=== PATIENT | male | born 1935 | race Caucasian/White ===

== ENCOUNTER 2016-06-30 17:24 | Emergency (ER) | payer MEDICARE ==
[2016-06-30] MEDS ORDERED: XYLOCAINE 2% Uro-Jet ONE (19:18)
[2016-06-30] MEDS ORDERED: XYLOCAINE 2% Uro-Jet TOP ONE (19:44)
[2016-06-30] MEDS ORDERED: ROCEPHIN 1 Gm-D5w 50 ml Bag** 50 ML IV ONE ×2 (19:44→20:13)
--- NOTE | 2016-06-30 19:49 | ERPHSYRPT ---
- History of Present Illness Time Seen by Provider: 06/30/16 19:12 Source: patient, family Patient Subjective Stated Complaint: states that he drank soda last night and has had burning with urination and some incontinence since that time Triage Nursing Assessment: ambulatory to treatment area - steady gait - moves all extremities with equal strength. alert/oriented - pleasant affect. skin pwd - no rash/injury. resps easy - non-labored Physician History: CC: burning with urination hx: 81 y/o man without hx of prostate problems or cancer. He has recent weight loss. He noted burning with urination last night and frequency with minimal urine today. No fever or chills. Penis feels pain. No vomiting. No abd pain. No hx of this in the past. Pt of Dr Buckner. No prior urology. Timing/Duration: yesterday Severity of Pain-Max: moderate Severity of Pain-Current: moderate Allergies/Adverse Reactions: No Known Drug Allergies Allergy (Unverified 06/30/16 19:17) Hx Tetanus, Diphtheria Vaccination/Date Given: No Hx Influenza Vaccination/Date Given: Yes Hx Pneumococcal Vaccination/Date Given: No Immunizations Up to Date: Yes - Past Medical History Pertinent Past Medical History: No Cardiac History: High Cholesterol, Hypertension Endocrine Medical History: Diabetes Type II, Hypothyroidism - Past Surgical History Past Surgical History: No - Social History Smoking Status: Never smoker Exposure to second hand smoke: No Drug Use: none Patient Lives Alone: No - Review of Systems Constitutional: Malaise, No Fever, No Chills Eyes: No Symptoms Respiratory: No Cough Cardiac: No Chest Pain Abdominal/Gastrointestinal: No Abdominal Pain, No Nausea, No Vomiting Genitourinary Symptoms: Dysuria, Frequency, Hesitancy, Incontinence, Urgency, Urinary Retention, No Flank Pain, No Testicle Pain Musculoskeletal: No Back Pain Skin: No Rash Neurological: No Headache All Other Systems: Reviewed and Negative - Nursing Vital Signs Nursing Vital Signs: Initial Vital Signs Temperature 98.9 F Temperature Source Oral Pulse Rate 68 Respiratory Rate 14 Blood Pressure [Right Arm] 138/77 Pain Intensity 0 - Physical Exam General Appearance: alert Eye Exam: PERRL/EOMI Ears, Nose, Throat Exam: moist mucous membranes Neck Exam: normal inspection, non-tender, supple Respiratory Exam: normal breath sounds, lungs clear Cardiovascular Exam: regular rate/rhythm Gastrointestinal/Abdomen Exam: soft, No tenderness, No distention Male Genital Exam: uncircumcised (phallus, some incontinent urine, normal testes. ) Back Exam: normal inspection Extremity Exam: normal inspection, normal range of motion Neurologic Exam: alert, oriented x 3, cooperative Skin Exam: warm, dry, No rash SpO2 Interpretation: normal SpO2: 98 Oxygen Delivery: Room Air Procedures - Additional Procedures Progress: Payne catheter placement: Penis cleanse with betadine. Urojet lidocaine injected. Attempt at payne unsuccessful due to urethral stricture. Attempted 16 Fr, 12 Fr , 8 Fr. Urethral sound used distal urethra. 10Fr suction catheter placed thru thick adhesions with return of foul thick urine. A 10 Fr payne was then placed with some difficulty distally thru the adhesion. Return of urine. Ultraound confirms intravesicular payne balloon and the catheter is draining urine. - Course Nursing assessment & vital signs reviewed: Yes Ordered Tests: Active Orders 24 hr Category Date Time Status Catheter-[place] Payne STAT Care 06/30/16 19:43 Active IV Insertion STAT Care 06/30/16 19:43 Active CBC W DIFF Stat Lab 06/30/16 20:00 Completed CMP Stat Lab 06/30/16 20:00 Completed CULTURE,URINE Stat Lab 06/30/16 20:00 Received Lactic Acid Urgent Lab 06/30/16 20:15 Completed UA W/ MICROSCOPIC Stat Lab 06/30/16 20:00 Completed Medication Summary Discontinued Medications Generic Name Dose Route Start Last Admin Trade Name Freq PRN Reason Stop Dose Admin Ceftriaxone Sodium/Dextrose 50 mls @ 100 mls/hr 06/30/16 19:44 06/30/16 20:15 Rocephin 1 Gm-D5w 50 Ml Bag IV 06/30/16 20:13 100 mls/hr STAT ONE Administration Ceftriaxone Sodium/Dextrose Confirm 06/30/16 20:13 Rocephin 1 Gm-D5w 50 Ml Bag Administered 06/30/16 20:14 Dose 50 mls @ ud IV .STK-MED ONE Lidocaine HCl Confirm 06/30/16 19:18 Xylocaine 2% Uro-Jet Administered 06/30/16 19:19 Dose 200 mg .ROUTE .STK-MED ONE Lidocaine HCl 200 mg 06/30/16 19:44 06/30/16 20:16 Xylocaine 2% Uro-Jet TOP 06/30/16 19:45 200 mg STAT ONE Administration Lab/Rad Data: Laboratory Result Diagrams 06/30/16 20:00 06/30/16 20:00 Laboratory Results 06/30/16 06/30/16 06/30/16 Range/Units 20:15 20:00 20:00 WBC (4.0-10.5) K/mm3 RBC (4.1-5.6) M/mm3 Hgb (12.5-18.0) gm/dl Hct (42-50) % MCV (78-100) fl MCH (26-32) pg MCHC (32-36) g/dl RDW (11.5-14.0) % Plt Count (150-450) K/mm3 MPV (6-9.5) fl Gran % (36.0-66.0) % Lymphocytes % (24.0-44.0) % Monocytes % (0.0-12.0) % Eosinophils % (0.00-5.0) % Basophils % (0.0-0.4) % Basophils # (0-0.4) Sodium 131 L (136-145) mEq/L Potassium 4.3 (3.5-5.1) mEq/L Chloride 94 L (98-107) mEq/L Carbon Dioxide 25.5 (21-32) mEq/L Anion Gap 15.8 H (5-15) MEQ/L BUN 12 (9-20) mg/dL Creatinine 0.82 (0.55-1.30) mg/dl Estimated GFR > 60 ML/MIN Glucose 148 H (70-110) MG/DL Lactic Acid 1.4 (0.4-2.0) Calcium 9.5 (8.5-10.1) mg/dL Total Bilirubin 0.9 (0.2-1.0) mg/dL AST 23 (15-37) U/L ALT 22 (12-78) U/L Alkaline Phosphatase 152 H (46-116) U/L Serum Total Protein 8.1 (6.4-8.2) gm/dL Albumin 3.7 (3.4-5.0) g/dL Ur Collection Type CLEAN CATCH Urine Color YELLOW (YELLOW) Urine Appearance CLOUDY (CLEAR) Urine pH 6.5 (5-6) Ur Specific [place] 1.025 (1.005-1.025) Urine Protein >=300 (Negative) Urine Glucose (UA) NEGATIVE (NEGATIVE) mg/dL Urine Ketones NEGATIVE (NEGATIVE) Urine Nitrite NEGATIVE (NEGATIVE) Urine Bilirubin NEGATIVE (NEGATIVE) Urine Urobilinogen 0.2 (0-1) mg/dL Urine WBC (Auto) MODERATE (NEGATIVE) Urine RBC (Auto) MODERATE (0-5) Anibal/ul Urine Microscopic RBC 25-50 (0-2) /HPF Urine Microscopic WBC >100 (0-5) /HPF Urine Bacteria MANY (NEGATIVE) /HPF Urine Mucus MODERATE (NEGATIVE) /HPF Specimen Received 06/30/16:199906/30/16 Range/Units 20:00 WBC 11.5 H (4.0-10.5) K/mm3 RBC 3.68 L (4.1-5.6) M/mm3 Hgb 12.0 L (12.5-18.0) gm/dl Hct 34.2 L (42-50) % MCV 92.9 (78-100) fl MCH 32.6 H (26-32) pg MCHC 35.1 (32-36) g/dl RDW 13.0 (11.5-14.0) % Plt Count 241 (150-450) K/mm3 MPV 10.4 H (6-9.5) fl Gran % 76.6 H (36.0-66.0) % Lymphocytes % 9.8 L (24.0-44.0) % Monocytes % 13.1 H (0.0-12.0) % Eosinophils % 0.2 (0.00-5.0) % Basophils % 0.3 (0.0-0.4) % Basophils # 0.03 (0-0.4) Sodium (136-145) mEq/L Potassium (3.5-5.1) mEq/L Chloride (98-107) mEq/L Carbon Dioxide (21-32) mEq/L Anion Gap (5-15) MEQ/L BUN (9-20) mg/dL Creatinine (0.55-1.30) mg/dl Estimated GFR ML/MIN Glucose (70-110) MG/DL Lactic Acid (0.4-2.0) Calcium (8.5-10.1) mg/dL Total Bilirubin (0.2-1.0) mg/dL AST (15-37) U/L ALT (12-78) U/L Alkaline Phosphatase (46-116) U/L Serum Total Protein (6.4-8.2) gm/dL Albumin (3.4-5.0) g/dL Ur Collection Type Urine Color (YELLOW) Urine Appearance (CLEAR) Urine pH (5-6) Ur Specific [place] (1.005-1.025) Urine Protein (Negative) Urine Glucose (UA) (NEGATIVE) mg/dL Urine Ketones (NEGATIVE) Urine Nitrite (NEGATIVE) Urine Bilirubin (NEGATIVE) Urine Urobilinogen (0-1) mg/dL Urine WBC (Auto) (NEGATIVE) Urine RBC (Auto) (0-5) Anibal/ul Urine Microscopic RBC (0-2) /HPF Urine Microscopic WBC (0-5) /HPF Urine Bacteria (NEGATIVE) /HPF Urine Mucus (NEGATIVE) /HPF Specimen Received - Progress Progress Note: 06/30/16 21:00 Labs reassuring. He has appt with Dr Buckner Sunday. Will need urology referral before payne removed as he has distal urethral stricture. Will release with instr. Counseled pt/family regarding: lab results, diagnosis, need for follow-up - Departure Time of Disposition: 21:01 Departure Disposition: Home Clinical Impression: Acute urinary retention, Urethral stricture, UTI (urinary tract infection) Condition: Stable Critical Care Time: No Referrals: SAMUEL BUCKNER MD [Primary Care Provider] - Instructions: Urinary Retention in Men, Care for Your Payne Catheter -- Male Additional Instructions: You have distal urethral stricture and will need to see urology for procedure before catheter removed. Rx omnicef to start tomorrow. Return for fever, pain, vomiting. See Dr Buckner as scheduled Sunday. Prescriptions: Cefdinir [Omnicef 300 mg] 300 mg PO BID #28 capsule
[2016-06-30 20:12] LABS: BASOPHIL % 0.3 % (0.0-0.4); Eosinophil % 0.2 % (0.00-5.0); Granulocytes % 76.6 % (36.0-66.0); Lymphocytes % 9.8 % (24.0-44.0); Mean Cell Volume 92.9 fl (78-100); Mean Corpuscular Hemoglobin 32.6 pg (26-32); Mean Platelet Volume 10.4 fl (6-9.5); Monocytes % 13.1 % (0.0-12.0); Platelet Count 241 K/mm3 (150-450); Red Blood Count 3.68 M/mm3 (4.1-5.6); White Blood Count 11.5 K/mm3 (4.0-10.5)
[2016-06-30 20:16] LABS: Bacteria MANY /HPF (NEGATIVE); COMPLETE URINE MICROSCOPIC? YES; Collection Type CLEAN CATCH; Mucus MODERATE /HPF (NEGATIVE); Ph 6.5 (5-6); WBC >100 /HPF (0-5)
[2016-06-30 20:31] LABS: ALBUMIN 3.7 g/dL (3.4-5.0); ALKALINE PHOSPHATASE 152 U/L (46-116); ANION GAP 15.8 MEQ/L (5-15); BILIRUBIN,TOTAL 0.9 mg/dL (0.2-1.0); BLOOD UREA NITROGEN 12 mg/dL (9-20); CHLORIDE 94 mEq/L (98-107); Carbon Dioxide 25.5 mEq/L (21-32); Glucose 148 MG/DL (70-110); Potassium 4.3 mEq/L (3.5-5.1); SGOT/AST 23 U/L (15-37); SGPT/ALT 22 U/L (12-78); SODIUM 131 mEq/L (136-145); Total Protein 8.1 gm/dL (6.4-8.2)
[2016-06-30 20:43] VITALS: BP 138/77; PULSE 68
[2016-06-30 21:03] VITALS: O2SAT 98
== END 2016-06-30 21:36 | disposition home or self-care (01) ==
LOC: ED 17:24
DX: R33.9 Retention of urine, unspecified (principal); N35.9 Urethral stricture, unspecified; N39.0 Urinary tract infection, site not specified; R30.0 Dysuria; R32 Unspecified urinary incontinence; R39.15 Urgency of urination
CPT/HCPCS: 36000; 36415; 51702; 80053; 81000; 82962; 83605; 85025; 87077; 87086; 96365; 99284; J0696

== ENCOUNTER 2021-10-04 10:07 | Observation (INO) | payer MEDICARE ==
--- NOTE | 2021-10-04 10:58 | XRAY ---
Indication: Pneumonia. Comparison: None Portable chest hyperinflated with minimal bibasilar fibrosis/scarring. No focal infiltrate, consolidation, or large effusion. Heart not enlarged for AP portable technique. Bony thorax intact with osteopenia and marked degenerative changes. Impression: Nonacute hyperinflated chest with chronic features.
[2021-10-04 11:09] LABS: Absolute Neutrophil Ct (ANC) 5.39 x10^3/uL (1.4-6.9); Basophil (Absolute #) 0.04 x10^3/uL (0-0.4); Eosinophil % 0.3 % (0.00-5.0); Eosinophil (Absolute #) 0.03 x10^3/uL (0-0.5); Hematocrit 35.3 % (42-50); Hemoglobin 11.8 g/dL (12.5-18.0); Lymphocyte (Absolute #) 1.41 x10^3/uL (1.0-4.6); Lymphocytes % 16.4 % (24.0-44.0); Mean Cell Volume 99.2 fL (78-100); Mean Corpuscular Hemoglobin 33.1 pg (26-32); Mean Corpuscular Hgb Concent. 33.4 g/dL (32-36); Mean Platelet Volume 10.8 fL (7.5-11.0); Monocyte (Absolute #) 1.68 x10^3/uL (0.0-1.3); Monocytes % 19.6 % (0.0-12.0); Neutrophil % 62.7 % (36.0-66.0); Platelet Count 185 x10^3/uL (150-450); Red Blood Count 3.56 x10^6/uL (4.1-5.6); Red Cell Distribution Width 12.7 % (11.5-14.0); White Blood Count 8.6 x10^3/uL (4.0-10.5)
--- NOTE | 2021-10-04 11:15 | ERPHSYRPT ---
- History of Present Illness Time Seen by Provider: 10/04/21 10:30 Source: patient Exam Limitations: no limitations Patient Subjective Stated Complaint: PT DAUGHTER STATES PT HAS BEEN MORE CONFUSED SINCE SUNDAY. PT DAUGHTER STATES PT HAS BEEN A LITTLE MORE UNSTEADY ON HIS FEET. CALLED DOCTOR YESTERDAY AND WAS TOLD TO COME TO OFFICE TODAY AROUND 0900. PT WAS SEEN AND SENT HERE FOR EVALUATION. Triage Nursing Assessment: PT ALERT, CONFUSED. Physician History: Patient is a 36-year-old male presents to emergency department with his daughter as a referral from primary care doctor for evaluation of confusion. Patient has been confused for approximately 3 days. Daughter believes her confusion is intermittent. Daughter also states that patient's gait is somewhat unsteady. Symptoms have been constant. Symptoms have been moderate in intensity. Patient denies pain. No chest pain or shortness of breath. No nausea vomiting or diaphoresis. No fever. Patient voices no other complaints or concerns at this time. Timing/Duration: day(s) (3 days) Severity: moderate Modifying Factors: Improves With: nothing Associated Symptoms: denies symptoms Allergies/Adverse Reactions: No Known Drug Allergies Allergy (Verified 10/04/21 10:24) Home Medications: Atenolol 50 mg [Tenormin 50 mg] 50 mg PO DAILY 10/04/21 [History] Benazepril HCl 40 mg PO DAILY 10/04/21 [History] Levothyroxine Sodium 50 Mcg [Synthroid 50 Mcg] 50 mcg PO DAILY 10/04/21 [History] Metformin HCl 500 mg [Glucophage 500 MG] 500 mg PO DAILY 10/04/21 [History] Pravastatin Sodium 40 mg PO DAILY 10/04/21 [History] Hx Tetanus, Diphtheria Vaccination/Date Given: No Hx Influenza Vaccination/Date Given: Yes Hx Pneumococcal Vaccination/Date Given: No Travel Risk - International Travel Have you traveled outside of the country in past 3 weeks: No - Coronavirus Screening Are you exhibiting any of the following symptoms?: No Close contact with a COVID-19 positive Pt in past 14-21 Days: No - Vaccine Status Have you recieved a Covid-19 vaccination: (UNKNOWN) Training Project Manager: Unknown - Vaccination Dates Dates if Unknown: UNKNOWN - Review of Systems Constitutional: No Symptoms, No Fever, No Chills Eyes: No Symptoms Ears, Nose, & Throat: No Symptoms Respiratory: No Symptoms, No Cough, No Dyspnea Cardiac: No Symptoms, No Chest Pain, No Edema, No Syncope Abdominal/Gastrointestinal: No Symptoms, No Abdominal Pain, No Nausea, No Vomiting, No Diarrhea Genitourinary Symptoms: No Symptoms, No Dysuria Musculoskeletal: No Symptoms, No Back Pain, No Neck Pain Skin: No Symptoms, No Rash Neurological: No Symptoms, No Dizziness, No Focal Weakness, No Sensory Changes Psychological: No Symptoms Endocrine: No Symptoms Hematologic/Lymphatic: No Symptoms Immunological/Allergic: No Symptoms All Other Systems: Reviewed and Negative - Past Medical History Pertinent Past Medical History: No Cardiac History: High Cholesterol, Hypertension Endocrine Medical History: Diabetes Type II, Hypothyroidism - Past Surgical History Past Surgical History: No - Social History Smoking Status: Never smoker Exposure to second hand smoke: No Drug Use: none Patient Lives Alone: No - Nursing Vital Signs Nursing Vital Signs: Initial Vital Signs Temperature 98.2 F 10/04/21 10:22 Pulse Rate 75 10/04/21 10:22 Respiratory Rate 18 10/04/21 10:22 Blood Pressure 165/111 10/04/21 10:22 O2 Sat by Pulse Oximetry 98 10/04/21 10:22 Pain Scale Pain Intensity 0 - Physical Exam General Appearance: no apparent distress, alert Eye Exam: PERRL/EOMI, eyes nml inspection Ears, Nose, Throat Exam: normal ENT inspection, TMs normal, pharynx normal, moist mucous membranes Neck Exam: normal inspection, non-tender, supple, full range of motion Respiratory Exam: normal breath sounds, lungs clear, airway intact, No respiratory distress Cardiovascular Exam: regular rate/rhythm, normal heart sounds, normal peripheral pulses Gastrointestinal/Abdomen Exam: soft, normal bowel sounds, No tenderness, No mass Back Exam: normal inspection, normal range of motion, No CVA tenderness, No vertebral tenderness Extremity Exam: normal inspection, normal range of motion, pelvis stable Neurologic Exam: alert, cooperative, normal mood/affect, sensation nml, other, No motor deficits (Alert but appears confused. Patient not following instructions well. No obvious lateralizing symptoms) Skin Exam: normal color, warm, dry, No rash Lymphatic Exam: No adenopathy SpO2 Interpretation: normal SpO2: 99 O2 Delivery: Room Air - Course Nursing assessment & vital signs reviewed: Yes EKG Interpreted by Me: RATE (84), A-fib, NORMAL AXIS, NORMAL INTERVALS - CT Exams Head CT Interpretation: Tele-radiologist Report (Large left temporoparietal acute to subacute appearing ischemia without mass-effect or acute hemorrhage. 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 Atrophy and degenerative micro ischemia within normal limits for patient's age.) Ordered Tests: Active Orders 24 hr Category Date Time Status Burrer Operator STAT Care 10/04/21 10:37 Active EKG-ER Only STAT Care 10/04/21 10:34 Active IV Insertion STAT Care 10/04/21 10:34 Active Pulse Oximetry (ED) STAT Care 10/04/21 10:34 Active Tele-Health Consult ROUTINE Cons 10/04/21 12:38 Active CHEST 1 VIEW (PORTABLE) Stat Exams 10/04/21 10:36 Completed HEAD WITHOUT CONTRAST [CT] Stat Exams 10/04/21 10:38 Completed CBC W DIFF Stat Lab 10/04/21 10:48 Completed CMP Stat Lab 10/04/21 10:48 Completed Lactic Acid Stat Lab 10/04/21 10:46 Completed Lactic Acid Stat Lab 10/04/21 12:52 Completed MAGNESIUM Stat Lab 10/04/21 10:48 Completed TROPONIN Q3H Lab 10/04/21 10:48 Completed TROPONIN Q3H Lab 10/04/21 13:19 Received TROPONIN Q3H Lab 10/04/21 16:45 Ordered TROPONIN Q3H Lab 10/04/21 19:45 Ordered TROPONIN Q3H Lab 10/04/21 22:45 Ordered TSH [TSH, 3RD Generation] Stat Lab 10/04/21 10:48 Completed UA W/RFX CULTURE Stat Lab 10/04/21 Ordered Transfer Order Routine Transfer 10/04/21 Ordered Medication Summary Generic Name Dose Route Start Last Admin Trade Name Freq PRN Reason Stop Dose Admin Sodium Chloride 1,000 mls @ 50 mls/hr 10/04/21 12:30 10/04/21 12:48 Sodium Chloride 0.9% 1000 Ml IV 11/03/21 12:29 50 mls/hr .Q20H SELVIN Administration Discontinued Medications Generic Name Dose Route Start Last Admin Trade Name Freq PRN Reason Stop Dose Admin Aspirin 324 mg 10/04/21 12:26 10/04/21 12:48 Aspirin 81 Mg Tab.Chew PO 10/04/21 12:27 324 mg STAT ONE Administration Aspirin Confirm 10/04/21 12:47 Aspirin 81 Mg Tab.Chew Administered 10/04/21 12:48 Dose 324 mg .ROUTE .STK-MED ONE Enoxaparin Sodium 60 mg 10/04/21 12:54 10/04/21 13:00 Enoxaparin Sodium 60 Mg/0.6 Ml Syringe SQ 10/04/21 12:55 60 mg STAT ONE Administration Enoxaparin Sodium Confirm 10/04/21 12:59 Enoxaparin Sodium 80 Mg/0.8 Ml Syringe Administered 10/04/21 13:00 Dose 80 mg SQ .STK-MED ONE Lab/Rad Data: Laboratory Result Diagrams 10/04/21 10:48 10/04/21 10:48 Laboratory Results 10/04/21 10/04/21 10/04/21 Range/Units 12:52 11:00 10:48 WBC (4.0-10.5) x10^3/uL RBC (4.1-5.6) x10^6/uL Hgb (12.5-18.0) g/dL Hct (42-50) % MCV (78-100) fL MCH (26-32) pg MCHC (32-36) g/dL RDW (11.5-14.0) % Plt Count (150-450) x10^3/uL MPV (7.5-11.0) fL Gran % (36.0-66.0) % Immature Gran % (Auto) (0.00-0.4) % Nucleat RBC Rel Count (0.00-0.1) % Eos # (Auto) (0-0.5) x10^3/uL Immature Gran # (Auto) (0.00-0.03) x10^3u/L Absolute Lymphs (auto) (1.0-4.6) x10^3/uL Absolute Monos (auto) (0.0-1.3) x10^3/uL Absolute Nucleated RBC (0.00-0.01) x10^3u/L Lymphocytes % (24.0-44.0) % Monocytes % (0.0-12.0) % Eosinophils % (0.00-5.0) % Basophils % (0.0-0.4) % Absolute Granulocytes (1.4-6.9) x10^3/uL Basophils # (0-0.4) x10^3/uL Sodium (137-145) mmol/L Potassium (3.5-5.1) mmol/L Chloride (98-107) mmol/L Carbon Dioxide (22-30) mmol/L Anion Gap (5-15) MEQ/L BUN (9-20) mg/dL Creatinine (0.66-1.25) mg/dL Estimated GFR ML/MIN Glucose (74-106) mg/dL Lactic Acid 1.4 (0.4-2.0) Calcium (8.4-10.2) mg/dL Magnesium (1.6-2.3) mg/dL Total Bilirubin (0.2-1.3) mg/dL AST (17-59) U/L ALT (0-50) U/L Alkaline Phosphatase (38-126) U/L Ammonia (9-30) umol/L Troponin I (0.000-0.034) ng/mL Serum Total Protein (6.3-8.2) g/dL Albumin (3.5-5.0) g/dL TSH 3rd Generation 0.562 (0.47-4.68) mIU/L Influenza Type A Ag NEGATIVE (NEGATIVE) Influenza Type B Ag NEGATIVE (NEGATIVE) RSV (PCR) NEGATIVE (Negative) SARS-CoV-2 (PCR) NEGATIVE (NEGATIVE) 10/04/21 10/04/21 10/04/21 Range/Units 10:48 10:48 10:48 WBC (4.0-10.5) x10^3/uL RBC (4.1-5.6) x10^6/uL Hgb (12.5-18.0) g/dL Hct (42-50) % MCV (78-100) fL MCH (26-32) pg MCHC (32-36) g/dL RDW (11.5-14.0) % Plt Count (150-450) x10^3/uL MPV (7.5-11.0) fL Gran % (36.0-66.0) % Immature Gran % (Auto) (0.00-0.4) % Nucleat RBC Rel Count (0.00-0.1) % Eos # (Auto) (0-0.5) x10^3/uL Immature Gran # (Auto) (0.00-0.03) x10^3u/L Absolute Lymphs (auto) (1.0-4.6) x10^3/uL Absolute Monos (auto) (0.0-1.3) x10^3/uL Absolute Nucleated RBC (0.00-0.01) x10^3u/L Lymphocytes % (24.0-44.0) % Monocytes % (0.0-12.0) % Eosinophils % (0.00-5.0) % Basophils % (0.0-0.4) % Absolute Granulocytes (1.4-6.9) x10^3/uL Basophils # (0-0.4) x10^3/uL Sodium 135 L (137-145) mmol/L Potassium 4.7 (3.5-5.1) mmol/L Chloride 99 (98-107) mmol/L Carbon Dioxide 26 (22-30) mmol/L Anion Gap 15.1 H (5-15) MEQ/L BUN 31 H (9-20) mg/dL Creatinine 1.00 (0.66-1.25) mg/dL Estimated GFR > 60.0 ML/MIN Glucose 130 H (74-106) mg/dL Lactic Acid (0.4-2.0) Calcium 9.3 (8.4-10.2) mg/dL Magnesium 2.0 (1.6-2.3) mg/dL Total Bilirubin 1.30 (0.2-1.3) mg/dL AST 39 (17-59) U/L ALT 19 (0-50) U/L Alkaline Phosphatase 119 (38-126) U/L Ammonia < 9 L (9-30) umol/L Troponin I < 0.012 (0.000-0.034) ng/mL Serum Total Protein 7.9 (6.3-8.2) g/dL Albumin 3.8 (3.5-5.0) g/dL TSH 3rd Generation (0.47-4.68) mIU/L Influenza Type A Ag (NEGATIVE) Influenza Type B Ag (NEGATIVE) RSV (PCR) (Negative) SARS-CoV-2 (PCR) (NEGATIVE) 10/04/21 10/04/21 Range/Units 10:48 10:46 WBC 8.6 (4.0-10.5) x10^3/uL RBC 3.56 L (4.1-5.6) x10^6/uL Hgb 11.8 L (12.5-18.0) g/dL Hct 35.3 L (42-50) % MCV 99.2 (78-100) fL MCH 33.1 H (26-32) pg MCHC 33.4 (32-36) g/dL RDW 12.7 (11.5-14.0) % Plt Count 185 (150-450) x10^3/uL MPV 10.8 (7.5-11.0) fL Gran % 62.7 (36.0-66.0) % Immature Gran % (Auto) 0.5 H (0.00-0.4) % Nucleat RBC Rel Count 0.0 (0.00-0.1) % Eos # (Auto) 0.03 (0-0.5) x10^3/uL Immature Gran # (Auto) 0.04 H (0.00-0.03) x10^3u/L Absolute Lymphs (auto) 1.41 (1.0-4.6) x10^3/uL Absolute Monos (auto) 1.68 H (0.0-1.3) x10^3/uL Absolute Nucleated RBC 0.00 (0.00-0.01) x10^3u/L Lymphocytes % 16.4 L (24.0-44.0) % Monocytes % 19.6 H (0.0-12.0) % Eosinophils % 0.3 (0.00-5.0) % Basophils % 0.5 (0.0-0.4) % Absolute Granulocytes 5.39 (1.4-6.9) x10^3/uL Basophils # 0.04 (0-0.4) x10^3/uL Sodium (137-145) mmol/L Potassium (3.5-5.1) mmol/L Chloride (98-107) mmol/L Carbon Dioxide (22-30) mmol/L Anion Gap (5-15) MEQ/L BUN (9-20) mg/dL Creatinine (0.66-1.25) mg/dL Estimated GFR ML/MIN Glucose (74-106) mg/dL Lactic Acid 2.1 H (0.4-2.0) Calcium (8.4-10.2) mg/dL Magnesium (1.6-2.3) mg/dL Total Bilirubin (0.2-1.3) mg/dL AST (17-59) U/L ALT (0-50) U/L Alkaline Phosphatase (38-126) U/L Ammonia (9-30) umol/L Troponin I (0.000-0.034) ng/mL Serum Total Protein (6.3-8.2) g/dL Albumin (3.5-5.0) g/dL TSH 3rd Generation (0.47-4.68) mIU/L Influenza Type A Ag (NEGATIVE) Influenza Type B Ag (NEGATIVE) RSV (PCR) (Negative) SARS-CoV-2 (PCR) (NEGATIVE) - Progress Progress: improved Progress Note: Case discussed with Dr. Buckner who accepts admission to observation. Plan of care discussed with daughter. She agrees to admission at [facility] for further evaluation and treatment. Patient evaluated by telemetry neuro who advised admission for MRI and further work-up. Telemetry neuro has provided a report with detailed recommendations. Aspirin administered in our ED. Patient received a dose of Lovenox due to atrial fibrillation. Aspirin administered Portions of this note were created with voice recognition technology. There may be grammatical, spelling, punctuation or sound alike errors 10/04/21 13:30 COVID test negative 10/04/21 13:[address] Hector Will see patient in: hospital (observation) Counseled pt/family regarding: lab results, diagnosis, rad results - Departure Departure Disposition: Observation Clinical Impression: Altered mental status, Atrial fibrillation Condition: Stable Critical Care Time: No Referrals: SAMUEL BUCKNER MD [Primary Care Provider] - Follow up/PCP as directed
[2021-10-04 11:21] LABS: ALBUMIN 3.8 g/dL (3.5-5.0); ALKALINE PHOSPHATASE 119 U/L (38-126); ANION GAP 15.1 MEQ/L (5-15); BLOOD UREA NITROGEN 31 mg/dL (9-20); CHLORIDE 99 mmol/L (98-107); Calcium 9.3 mg/dL (8.4-10.2); Carbon Dioxide 26 mmol/L (22-30); EST GLOMERULAR FILTRATION RATE > 60.0 ML/MIN; Glucose 130 mg/dL (74-106); Potassium 4.7 mmol/L (3.5-5.1); SGOT/AST 39 U/L (17-59); SGPT/ALT 19 U/L (0-50); SODIUM 135 mmol/L (137-145); Total Protein 7.9 g/dL (6.3-8.2)
--- NOTE | 2021-10-04 11:50 | XRAY ---
Indication: Acute mental status change. Multiple contiguous axial images obtained through the head without contrast. Comparison: None Age-appropriate global atrophy, moderate periventricular degenerative micro-ischemia bilaterally, and and small old infarct left basal ganglia. Also old right cerebellar/right mid parietal lobe infarcts. Left temporoparietal lobe demonstrates large focus of cortical/subcortical hypoattenuation without mass effect favoring acute to subacute ischemia. No acute intracranial hemorrhage or hydrocephalus. Bony calvarium intact. Visualized paranasal sinuses and mastoid air cells are clear. Impression: 1. Large left temporoparietal acute to subacute appearing ischemia without mass effect or acute hemorrhage. 2. 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 3. Atrophy and degenerative micro-ischemia within normal limits for patient's age.
[2021-10-04 11:55] LABS: INFLUENZA A NEGATIVE (NEGATIVE); INFLUENZA B NEGATIVE (NEGATIVE); RESPIRATORY SYNCTIAL VIRUS NEGATIVE (Negative); SARS-CoV-2 Xpert Express NEGATIVE (NEGATIVE)
[2021-10-04] MEDS ORDERED: BABY ASPIRIN 81 MG CHEW PO ONE (12:26)
[2021-10-04] MEDS ORDERED: Sodium Chloride 0.9% 1000 ML 1,000 ML IV SCH (12:30)
[2021-10-04] MEDS ORDERED: Sodium Chloride 0.9% 1000 ML 1,000 ML ONE (12:47)
[2021-10-04] MEDS ORDERED: BABY ASPIRIN 81 MG CHEW ONE (12:47)
[2021-10-04] MEDS ORDERED: ENOXAPARIN SODIUM SQ ONE ×2 (12:54→12:59)
[2021-10-04] MEDS ORDERED: Zofran 4 MG/2 ML VIAL IV PRN (13:45)
[2021-10-04] MEDS ORDERED: TYLENOL 325 MG PO PRN (13:45)
[2021-10-04] MEDS ORDERED: MAALOX ES 30 ML UNIT DOSE PO PRN (13:45)
[2021-10-04] MEDS ORDERED: MILK OF MAGNESIA 30 ML PO PRN (13:45)
[2021-10-04] MEDS ORDERED: Senokot-S Tablet PO PRN (13:45)
[2021-10-04] MEDS ORDERED: ATARAX 25 MG PO PRN (14:34)
--- NOTE | 2021-10-04 16:32 | XRAY ---
Indication: Acute mental status change. Multiseptated [id number] MRA [place] performed. Comparison: None Study is limited by motion artifact. Distal left internal carotid artery demonstrates multifocal areas of attenuation to the level of the carotid terminus presumed due to stenosis/obstruction. Distal right internal carotid artery is normal in course and caliber without critical stenosis/obstruction. Normal branching A1 and M1 segments bilaterally. More distal M2 and middle cerebral arteries are also attenuated presumed due to stenosis/obstruction. Posterior circulation demonstrates bilaterally symmetric distal vertebral arteries. Remaining basilar, left/right posterior cerebral and left superior cerebellar arteries are grossly unremarkable. Attenuated right superior cerebellar artery. Impression: 1. Limited MRA [place] due to motion artifact. 2. Multifocal areas of attenuation distal left internal carotid, left middle cerebral, and right superior cerebellar arteries presumed due to stenosis/obstruction.
--- NOTE | 2021-10-04 16:50 | XRAY ---
Indication: CVA. Two-dimensional sonogram and color Doppler imaging of the carotid arteries of the neck performed. Comparison: None Examination of the right carotid circulation demonstrates widely patent common carotid artery. Carotid bulb demonstrates moderate calcified plaquing extending into the origin/proximal internal carotid artery and lesser degree origin external carotid artery. PSV of the CCA is 56 cm/s. PSV of the ICA is 213 cm/s. ICA/CCA ratio is 3.8. Normal antegrade vertebral artery flow. Examination of the left carotid circulation demonstrates widely patent common carotid artery. Moderate/significant calcified plaquing at the level of the bulb extends into the origin/proximal internal carotid artery and lesser degree origin external carotid artery. 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 PSV of the CCA is 32 cm/s. PSV of the ICA is 244 cm/s. ICA/CCA ratio is 7.6. Normal antegrade vertebral artery flow. Impression: Moderate/significant arteriosclerotic plaquing, left greater than right as detailed. Velocity measurements and ratios both favor greater than 70% stenosis bilaterally.
[2021-10-04] MEDS: Glucophage 500 MG PO SCH (18:00)
[2021-10-04 18:40] LABS: INR 1.07 (0.8-3.0); PROTIME 11.3 SECONDS (9.4-12.5)
[2021-10-04 21:34] LABS: Appearance CLEAR (CLEAR); Bilirubin NEGATIVE (NEGATIVE); Dipstick done @ ? MAIN LAB; Glucose NEGATIVE (NEGATIVE); Ketones NEGATIVE (NEGATIVE); Nitrite NEGATIVE (NEGATIVE); Protein,Urine Dip >=300 (Negative); RBC SMALL Ery/ul (0-5); Specific Gravity 1.025 (1.005-1.025); Urobilinogen 0.2 mg/dL (0-1)
[2021-10-04 21:41] LABS: Bacteria MODERATE /HPF (NEGATIVE); Mucus SLIGHT /HPF (NEGATIVE); Urine Cultured Indicated? YES; WBC 51-100 /HPF (0-5)
[2021-10-04] MEDS ORDERED: ZOCOR 20MG PO SCH (22:00)
[2021-10-04] MEDS ORDERED: NON-FORMULARY ITEM (Pravastatin Sodium [Pravastatin Sodium] 40 MG Tablet) PO SCH (22:00)
[2021-10-04] MEDS ORDERED: TENORMIN 50 MG PO SCH (22:00)
[2021-10-05] MEDS: ENOXAPARIN SODIUM SQ SCH ×2 (00:43→10:15)
[2021-10-05 05:30] LABS: Absolute Neutrophil Ct (ANC) 5.37 x10^3/uL (1.4-6.9); Basophil (Absolute #) 0.03 x10^3/uL (0-0.4); Eosinophil % 1.1 % (0.00-5.0); Eosinophil (Absolute #) 0.09 x10^3/uL (0-0.5); Hematocrit 33.1 % (42-50); Hemoglobin 11.4 g/dL (12.5-18.0); Lymphocyte (Absolute #) 1.62 x10^3/uL (1.0-4.6); Lymphocytes % 19.3 % (24.0-44.0); Mean Cell Volume 97.6 fL (78-100); Mean Corpuscular Hemoglobin 33.6 pg (26-32); Mean Corpuscular Hgb Concent. 34.4 g/dL (32-36); Mean Platelet Volume 11.1 fL (7.5-11.0); Monocyte (Absolute #) 1.26 x10^3/uL (0.0-1.3); Neutrophil % 63.8 % (36.0-66.0); Platelet Count 188 x10^3/uL (150-450); Red Blood Count 3.39 x10^6/uL (4.1-5.6); Red Cell Distribution Width 12.9 % (11.5-14.0); White Blood Count 8.4 x10^3/uL (4.0-10.5)
[2021-10-05 05:46] LABS: ANION GAP 13.3 MEQ/L (5-15); BLOOD UREA NITROGEN 34 mg/dL (9-20); CHLORIDE 101 mmol/L (98-107); Calcium 8.8 mg/dL (8.4-10.2); Carbon Dioxide 24 mmol/L (22-30); Creatinine 1 1.14 mg/dL (0.66-1.25); EST GLOMERULAR FILTRATION RATE > 60.0 ML/MIN; Glucose 122 mg/dL (74-106); Potassium 4.5 mmol/L (3.5-5.1); SODIUM 134 mmol/L (137-145)
[2021-10-05] MEDS: Glucophage 500 MG PO SCH (07:29)
[2021-10-05] MEDS ORDERED: SYNTHROID 50 MCG PO SCH (10:00)
[2021-10-05] MEDS ORDERED: NON-FORMULARY ITEM (Benazepril Hcl [Benazepril Hcl] 40 MG Tablet) PO SCH (10:00)
[2021-10-05] MEDS ORDERED: PLAVIX Tablet PO SCH (10:00)
[2021-10-05] MEDS ORDERED: Lotensin PO SCH (10:00)
[2021-10-05 12:28] VITALS: BP 94/54; PULSE 82; O2SAT 96
--- NOTE | 2021-10-05 21:05 | PCM.SSS ---
History of Present Illness - Chief Complaint Chief Complaint: confusion and weakness for 2-3 days History of Present Illness: is a 86 year old male.Patient has been confused for approximately 3 days. Daughter believes her confusion is intermittent. Daughter also states that patient's gait is somewhat unsteady. Symptoms have been constant. Symptoms have been moderate in intensity. Patient denies pain. No chest pain or shortness of breath. No nausea vomiting or diaphoresis. No fever. Patient voices no other complaints or concerns at this time. Timing/Duration: day(s) (3 days) Severity: moderate Modifying Factors: Improves With: nothing Associated Symptoms: denies symptoms - Review of Systems Constitutional: Fatigue, Lethargy, Weakness Eyes: No Symptoms Ears, Nose, & Throat: No Symptoms Respiratory: No Cough, No Short Of Breath Cardiac: No Chest Pain, No Edema, No Syncope Abdominal/Gastrointestinal: No Abdominal Pain, No Nausea, No Vomiting, No Diarrhea Genitourinary Symptoms: No Dysuria Musculoskeletal: Arthralgias, No Back Pain, No Neck Pain Skin: No Rash Neurological: Dizziness, Focal Weakness, Lethargy, Speech Changes, No Sensory Changes Psychological: No Symptoms Endocrine: No Symptoms Hematologic/Lymphatic: No Symptoms Immunological/Allergic: No Symptoms Medications & Allergies Home Medications: Home Medication List Atenolol 50 mg [Tenormin 50 mg] 50 mg PO HS 10/04/21 [History Confirmed 10/04/21] Benazepril HCl 40 mg PO DAILY 10/04/21 [History Confirmed 10/04/21] Levothyroxine Sodium 50 Mcg [Synthroid 50 Mcg] 50 mcg PO DAILY 10/04/21 [History Confirmed 10/04/21] Metformin HCl 500 mg [Glucophage 500 MG] 250 mg PO BID 10/04/21 [History Confirmed 10/04/21] Pravastatin Sodium 40 mg PO HS 10/04/21 [History Confirmed 10/04/21] Allergies/Adverse Reactions: Allergies Allergy/AdvReac Type Severity Reaction Status Date / Time No Known Drug Allergies Allergy Verified 10/04/21 16:04 - Past Medical History Past Medical History: No Neurological History: No Pertinent History, Alzheimer's Disease, TIA ENT History: Cataracts Cardiac History: High Cholesterol, Hypertension Respiratory History: No Pertinent History Endocrine Medical History: Diabetes Type II, Hypothyroidism Musculoskelatal History: Osteoarthritis GI Medical History: No Pertinent History History: No Pertinent History Pyscho-Social History: No Pertinent History Male Reproductive Disorders: No Pertinent History - Past Surgical History Past Surgical History: No Neuro Surgical History: No Pertinent History Cardiac History: No Pertinent History Respiratory Surgery: No Pertinent History GI Surgical History: No Pertinent History Genitourinary Surgical Hx: No Pertinent History Musculskeletal Surgical Hx: No Pertinent History Male Surgical History: No Pertinent History Other Surgical History: Cataract removal both eyes - Social History Smoking Status: Never smoker Exposure to second hand smoke: No Alcohol: None Drug Use: none - Physical Exam Vital Signs: Vital Signs - 24 hr Temp Pulse Resp BP BP Pulse Ox 10/05/21 12:00 97.8 F 82 20 94/54 96 10/05/21 07:59 97.8 F 85 10 L 161/112 98 10/05/21 04:00 98.9 F 75 18 147/92 96 10/04/21 23:34 99.6 F 80 20 124/66 97 10/04/21 23:12 94 H 104/63 General Appearance: moderate distress, alert Neurologic Exam: alert, motor deficits, confusion, motor weakness, abnormal gait, abnormal cerebellar tests Eye Exam: PERRL/EOMI, eyes nml inspection Ears, Nose, Throat Exam: normal ENT inspection, TMs normal, pharynx normal, moist mucous membranes Neck Exam: normal inspection, non-tender, supple, full range of motion Respiratory Exam: normal breath sounds, lungs clear, No respiratory distress Cardiovascular Exam: irregular, capillary refill 2-3 sec Gastrointestinal/Abdomen Exam: soft, normal bowel sounds, No tenderness, No mass Back Exam: normal inspection, decreased range of motion, No CVA tenderness, No vertebral tenderness Extremity Exam: normal inspection, normal range of motion, pelvis stable Skin Exam: normal color, warm, dry, No rash Lymphatic Exam: No adenopathy Results - Labs Lab/Micro Results: Lab Results-Last 24 Hours 10/04/21 10/04/21 10/04/21 Range/Units 20:23 21:18 21:28 WBC (4.0-10.5) x10^3/uL RBC (4.1-5.6) x10^6/uL Hgb (12.5-18.0) g/dL Hct (42-50) % MCV (78-100) fL MCH (26-32) pg MCHC (32-36) g/dL RDW (11.5-14.0) % Plt Count (150-450) x10^3/uL MPV (7.5-11.0) fL Gran % (36.0-66.0) % Immature Gran % (Auto) (0.00-0.4) % Nucleat RBC Rel Count (0.00-0.1) % Eos # (Auto) (0-0.5) x10^3/uL Immature Gran # (Auto) (0.00-0.03) x10^3u/L Absolute Lymphs (auto) (1.0-4.6) x10^3/uL Absolute Monos (auto) (0.0-1.3) x10^3/uL Absolute Nucleated RBC (0.00-0.01) x10^3u/L Lymphocytes % (24.0-44.0) % Monocytes % (0.0-12.0) % Eosinophils % (0.00-5.0) % Basophils % (0.0-0.4) % Absolute Granulocytes (1.4-6.9) x10^3/uL Basophils # (0-0.4) x10^3/uL Sodium (137-145) mmol/L Potassium (3.5-5.1) mmol/L Chloride (98-107) mmol/L Carbon Dioxide (22-30) mmol/L Anion Gap (5-15) MEQ/L BUN (9-20) mg/dL Creatinine (0.66-1.25) mg/dL Estimated GFR ML/MIN Glucose (74-106) mg/dL POC Glucometer 117 H (74 to 106) mg/dL Calcium (8.4-10.2) mg/dL Troponin I < 0.012 (0.000-0.034) ng/mL Triglycerides (30-150) mg/dL Cholesterol (50-200) mg/dL LDL Cholesterol (30-100) mg/dL HDL Cholesterol (40-60) mg/dL Heart Disease Risk Ratio Urinalys Dipstick Clnc MAIN LAB Urine Color YELLOW (YELLOW) Urine Appearance CLEAR (CLEAR) Urine pH 7.0 (5-6) Ur Specific [place] 1.025 (1.005-1.025) POC Urine Protein Conf >=300 (Negative) Urine Ketones NEGATIVE (NEGATIVE) Urine Nitrite NEGATIVE (NEGATIVE) Urine Bilirubin NEGATIVE (NEGATIVE) Urine Urobilinogen 0.2 (0-1) mg/dL Urine Leukocytes SMALL (NEGATIVE) Urine WBC (Auto) 51-100 (0-5) /HPF Urine RBC (Auto) 3-5 (0-2) /HPF U Epithel Cells (Auto) NONE (FEW) /HPF Urine Bacteria (Auto) MODERATE (NEGATIVE) /HPF Urine RBC SMALL (0-5) Anibal/ul Urine Mucus (Auto) SLIGHT (NEGATIVE) /HPF Ur Culture Indicated? YES Urine Glucose NEGATIVE (NEGATIVE) mg/dL 10/04/21 10/05/21 10/05/21 Range/Units 23:51 04:40 04:40 WBC 8.4 (4.0-10.5) x10^3/uL RBC 3.39 L (4.1-5.6) x10^6/uL Hgb 11.4 L (12.5-18.0) g/dL Hct 33.1 L (42-50) % MCV 97.6 (78-100) fL MCH 33.6 H (26-32) pg MCHC 34.4 (32-36) g/dL RDW 12.9 (11.5-14.0) % Plt Count 188 (150-450) x10^3/uL MPV 11.1 H (7.5-11.0) fL Gran % 63.8 (36.0-66.0) % Immature Gran % (Auto) 0.4 (0.00-0.4) % Nucleat RBC Rel Count 0.0 (0.00-0.1) % Eos # (Auto) 0.09 (0-0.5) x10^3/uL Immature Gran # (Auto) 0.03 (0.00-0.03) x10^3u/L Absolute Lymphs (auto) 1.62 (1.0-4.6) x10^3/uL Absolute Monos (auto) 1.26 (0.0-1.3) x10^3/uL Absolute Nucleated RBC 0.00 (0.00-0.01) x10^3u/L Lymphocytes % 19.3 L (24.0-44.0) % Monocytes % 15.0 H (0.0-12.0) % Eosinophils % 1.1 (0.00-5.0) % Basophils % 0.4 (0.0-0.4) % Absolute Granulocytes 5.37 (1.4-6.9) x10^3/uL Basophils # 0.03 (0-0.4) x10^3/uL Sodium (137-145) mmol/L Potassium (3.5-5.1) mmol/L Chloride (98-107) mmol/L Carbon Dioxide (22-30) mmol/L Anion Gap (5-15) MEQ/L BUN (9-20) mg/dL Creatinine (0.66-1.25) mg/dL Estimated GFR ML/MIN Glucose (74-106) mg/dL POC Glucometer (74 to 106) mg/dL Calcium (8.4-10.2) mg/dL Troponin I < 0.012 (0.000-0.034) ng/mL Triglycerides 90 (30-150) mg/dL Cholesterol 140 (50-200) mg/dL LDL Cholesterol 71 (30-100) mg/dL HDL Cholesterol 46 (40-60) mg/dL Heart Disease Risk Ratio 3.0 Urinalys Dipstick Clnc Urine Color (YELLOW) Urine Appearance (CLEAR) Urine pH (5-6) Ur Specific [place] (1.005-1.025) POC Urine Protein Conf (Negative) Urine Ketones (NEGATIVE) Urine Nitrite (NEGATIVE) Urine Bilirubin (NEGATIVE) Urine Urobilinogen (0-1) mg/dL Urine Leukocytes (NEGATIVE) Urine WBC (Auto) (0-5) /HPF Urine RBC (Auto) (0-2) /HPF U Epithel Cells (Auto) (FEW) /HPF Urine Bacteria (Auto) (NEGATIVE) /HPF Urine RBC (0-5) Anibal/ul Urine Mucus (Auto) (NEGATIVE) /HPF Ur Culture Indicated? Urine Glucose (NEGATIVE) mg/dL 10/05/21 10/05/21 10/05/21 Range/Units 04:40 07:34 11:50 WBC (4.0-10.5) x10^3/uL RBC (4.1-5.6) x10^6/uL Hgb (12.5-18.0) g/dL Hct (42-50) % MCV (78-100) fL MCH (26-32) pg MCHC (32-36) g/dL RDW (11.5-14.0) % Plt Count (150-450) x10^3/uL MPV (7.5-11.0) fL Gran % (36.0-66.0) % Immature Gran % (Auto) (0.00-0.4) % Nucleat RBC Rel Count (0.00-0.1) % Eos # (Auto) (0-0.5) x10^3/uL Immature Gran # (Auto) (0.00-0.03) x10^3u/L Absolute Lymphs (auto) (1.0-4.6) x10^3/uL Absolute Monos (auto) (0.0-1.3) x10^3/uL Absolute Nucleated RBC (0.00-0.01) x10^3u/L Lymphocytes % (24.0-44.0) % Monocytes % (0.0-12.0) % Eosinophils % (0.00-5.0) % Basophils % (0.0-0.4) % Absolute Granulocytes (1.4-6.9) x10^3/uL Basophils # (0-0.4) x10^3/uL Sodium 134 L (137-145) mmol/L Potassium 4.5 (3.5-5.1) mmol/L Chloride 101 (98-107) mmol/L Carbon Dioxide 24 (22-30) mmol/L Anion Gap 13.3 (5-15) MEQ/L BUN 34 H (9-20) mg/dL Creatinine 1.14 (0.66-1.25) mg/dL Estimated GFR > 60.0 ML/MIN Glucose 122 H (74-106) mg/dL POC Glucometer 117 H 134 H (74 to 106) mg/dL Calcium 8.8 (8.4-10.2) mg/dL Troponin I (0.000-0.034) ng/mL Triglycerides (30-150) mg/dL Cholesterol (50-200) mg/dL LDL Cholesterol (30-100) mg/dL HDL Cholesterol (40-60) mg/dL Heart Disease Risk Ratio Urinalys Dipstick Clnc Urine Color (YELLOW) Urine Appearance (CLEAR) Urine pH (5-6) Ur Specific [place] (1.005-1.025) POC Urine Protein Conf (Negative) Urine Ketones (NEGATIVE) Urine Nitrite (NEGATIVE) Urine Bilirubin (NEGATIVE) Urine Urobilinogen (0-1) mg/dL Urine Leukocytes (NEGATIVE) Urine WBC (Auto) (0-5) /HPF Urine RBC (Auto) (0-2) /HPF U Epithel Cells (Auto) (FEW) /HPF Urine Bacteria (Auto) (NEGATIVE) /HPF Urine RBC (0-5) Anibal/ul Urine Mucus (Auto) (NEGATIVE) /HPF Ur Culture Indicated? Urine Glucose (NEGATIVE) mg/dL - Radiology Impressions Radiology Exams & Impressions: Radiology Procedures Category Date Time Status CAROTID BILATERAL [US] Stat Exams 10/04/21 16:23 Completed CHEST 1 VIEW (PORTABLE) Stat Exams 10/04/21 10:36 Completed ECHO W/2D AND DOPPLER [US] Stat Exams 10/04/21 16:23 Taken HEAD WITHOUT CONTRAST [CT] Stat Exams 10/04/21 10:38 Completed MRA BRAIN WITHOUT CONTRAST [MRI] Routine Exams 10/04/21 14:44 Completed MRI BRAIN W/O CONTRAST [MRI] Routine Exams 10/04/21 14:34 Taken 0004 MRI/MRA BRAIN WITHOUT CONTRAST Indication: Acute mental status change. Multiseptated [id number] MRA [place] performed. Comparison: None Study is limited by motion artifact. Distal left internal carotid artery demonstrates multifocal areas of attenuation to the level of the carotid terminus presumed due to stenosis/obstruction. Distal right internal carotid artery is normal in course and caliber without critical stenosis/obstruction. Normal branching A1 and M1 segments bilaterally. More distal M2 and middle cerebral arteries are also attenuated presumed due to stenosis/obstruction. Posterior circulation demonstrates bilaterally symmetric distal vertebral arteries. Remaining basilar, left/right posterior cerebral and left superior cerebellar arteries are grossly unremarkable. Attenuated right superior cerebellar artery. Impression: 1. Limited MRA [place] due to motion artifact. 2. Multifocal areas of attenuation distal left internal carotid, left middle cerebral, and right superior cerebellar arteries presumed due to stenosis/obstruction. Reported by: MYCHAL BULLOCK DO Signed by: MYCHAL BULLOCK DO Assessment/Plan (1) Ischemic cerebrovascular accident (CVA) due to global hypoperfusion with watershed infarction Status: Acute Assessment & Plan: Chief Complaint Diagnosis confusion and weakness for 2-3 days Allergies Allergy/AdvReac Type Severity Reaction Status Date / Time No Known Drug Allergies Allergy Verified 10/04/21 16:04 Vital Signs (Last 24 hours) Temp Pulse Resp BP BP Pulse Ox 10/05/21 12:00 97.8 F 82 20 94/54 96 10/05/21 07:59 97.8 F 85 10 L 161/112 98 10/05/21 04:00 98.9 F 75 18 147/92 96 10/04/21 23:34 99.6 F 80 20 124/66 97 10/04/21 23:12 94 H 104/63 Home Medications Medication Instructions Recorded Confirmed Last Taken Type Atenolol 50 mg [Tenormin 50 50 mg PO HS 10/04/21 10/04/21 10/03/21 History mg] Benazepril HCl 40 mg PO DAILY 10/04/21 10/04/21 10/04/21 History Levothyroxine Sodium 50 Mcg 50 mcg PO DAILY 10/04/21 10/04/21 10/04/21 History [Synthroid 50 Mcg] Metformin HCl 500 mg 250 mg PO BID 10/04/21 10/04/21 10/04/21 History [Glucophage 500 MG] Pravastatin Sodium 40 mg PO HS 10/04/21 10/04/21 10/03/21 History Current Medications Discontinued Medications Generic Name Dose Route Start Last Admin Trade Name Freq PRN Reason Stop Dose Admin Acetaminophen 650 mg 10/04/21 13:45 Acetaminophen 325 Mg Tablet PO 11/03/21 13:44 Q4H PRN PRN PAIN AND/OR FEVER Al Hydrox/Mg Hydrox/Simethicone 30 ml 10/04/21 13:45 Mag Hydrox/Al Hydrox/Simeth 30 Ml Udcup PO 11/03/21 13:44 Q4H PRN PRN INDIGESTION Aspirin 324 mg 10/04/21 12:26 10/04/21 12:48 Aspirin 81 Mg Tab.Chew PO 10/04/21 12:27 324 mg STAT ONE Administration Aspirin Confirm 10/04/21 12:47 Aspirin 81 Mg Tab.Chew Administered 10/04/21 12:48 Dose 324 mg .ROUTE .STK-MED ONE Atenolol 50 mg 10/04/21 22:00 10/04/21 23:12 Atenolol 50 Mg Tablet PO 11/03/21 21:59 Not Given HS SELVIN Benazepril HCl 40 mg 10/05/21 10:00 10/05/21 10:14 Benazepril Hcl 10 Mg Tablet PO 11/04/21 09:59 40 mg DAILY SELVIN Administration Clopidogrel Bisulfate 75 mg 10/05/21 10:00 10/05/21 10:14 Clopidogrel Bisulfate 75 Mg Tablet PO 11/04/21 09:59 75 mg DAILY SELVIN Administration Enoxaparin Sodium 60 mg 10/04/21 12:54 10/04/21 13:00 Enoxaparin Sodium 60 Mg/0.6 Ml Syringe SQ 10/04/21 12:55 60 mg STAT ONE Administration Enoxaparin Sodium Confirm 10/04/21 12:59 Enoxaparin Sodium 80 Mg/0.8 Ml Syringe Administered 10/04/21 13:00 Dose 80 mg SQ .STK-MED ONE Enoxaparin Sodium 40 mg 10/04/21 22:00 10/05/21 10:15 Enoxaparin Sodium 40 Mg/0.4 Ml Syringe SQ 11/03/21 21:59 40 mg Q12HT SELVIN Administration Hydroxyzine HCl 25 mg 10/04/21 14:34 Hydroxyzine Hcl 25 Mg Tablet PO 11/03/21 14:33 TID PRN PRN ANXIETY Sodium Chloride 1,000 mls @ 50 mls/hr 10/04/21 12:30 10/04/21 12:48 Sodium Chloride 0.9% 1000 Ml IV 11/03/21 12:29 50 mls/hr .Q20H SELVIN Administration Sodium Chloride Confirm 10/04/21 12:47 Sodium Chloride 0.9% 1000 Ml Administered 10/04/21 12:48 Dose 1,000 mls @ ud .ROUTE .STK-MED ONE Levothyroxine Sodium 50 mcg 10/05/21 10:00 10/05/21 10:14 Levothyroxine Sodium 50 Mcg Tablet PO 11/04/21 09:59 50 mcg DAILY SELVIN Administration Magnesium Hydroxide 30 - 60 ml 10/04/21 13:45 Magnesium Hydroxide 30 Ml Udcup PO 11/03/21 13:44 QDP PRN CONSTIPATION Metformin HCl 250 mg 10/04/21 17:00 10/05/21 07:29 Metformin Hcl 500 Mg Tablet PO 11/03/21 16:59 250 mg BIDWM SELVIN Administration Ondansetron HCl 4 mg 10/04/21 13:45 Ondansetron Hcl 4 Mg/2 Ml Vial IV 11/03/21 13:44 Q4H PRN PRN NAUSEA/VOMITING Senna/Docusate Sodium 2 udtab 10/04/21 13:45 Senna/Docusate Sodium 1 Udtab Tablet PO 11/03/21 13:44 BID PRN PRN CONSTIPATION Simvastatin 40 mg 10/04/21 22:00 10/04/21 21:50 Simvastatin 20 Mg Tablet PO 11/03/21 21:59 40 mg HS SELVIN Administration Intake & Output (Last 24 hours) 10/03/21 10/04/21 10/05/21 10/06/21 11:59 11:59 11:59 11:59 Intake Total 620 480 Output Total 890 Balance -270 480 Weight 61.9 kg 59 kg Microbiology Results (Last 24 hours) 10/04/21 21:28 Clean Catch Midstream Urine Culture - Pending Laboratory Results (Last 24 hours) 10/05/21 10/05/21 10/05/21 11:50 07:34 04:40 WBC RBC Hgb Hct MCV MCH MCHC RDW Plt Count MPV Gran % Immature Gran % (Auto) Nucleat RBC Rel Count Eos # (Auto) Immature Gran # (Auto) Absolute Lymphs (auto) Absolute Monos (auto) Absolute Nucleated RBC Lymphocytes % Monocytes % Eosinophils % Basophils % Absolute Granulocytes Basophils # Sodium 134 L Potassium 4.5 Chloride 101 Carbon Dioxide 24 Anion Gap 13.3 BUN 34 H Creatinine 1.14 Estimated GFR > 60.0 Glucose 122 H POC Glucometer 134 H 117 H Calcium 8.8 Troponin I Triglycerides Cholesterol LDL Cholesterol HDL Cholesterol Heart Disease Risk Ratio Urinalys Dipstick Clnc Urine Color Urine Appearance Urine pH Ur Specific [place] POC Urine Protein Conf Urine Ketones Urine Nitrite Urine Bilirubin Urine Urobilinogen Urine Leukocytes Urine WBC (Auto) Urine RBC (Auto) U Epithel Cells (Auto) Urine Bacteria (Auto) Urine RBC Urine Mucus (Auto) Ur Culture Indicated? Urine Glucose 10/05/21 10/05/21 10/04/21 04:40 04:40 23:51 WBC 8.4 RBC 3.39 L Hgb 11.4 L Hct 33.1 L MCV 97.6 MCH 33.6 H MCHC 34.4 RDW 12.9 Plt Count 188 MPV 11.1 H Gran % 63.8 Immature Gran % (Auto) 0.4 Nucleat RBC Rel Count 0.0 Eos # (Auto) 0.09 Immature Gran # (Auto) 0.03 Absolute Lymphs (auto) 1.62 Absolute Monos (auto) 1.26 Absolute Nucleated RBC 0.00 Lymphocytes % 19.3 L Monocytes % 15.0 H Eosinophils % 1.1 Basophils % 0.4 Absolute Granulocytes 5.37 Basophils # 0.03 Sodium Potassium Chloride Carbon Dioxide Anion Gap BUN Creatinine Estimated GFR Glucose POC Glucometer Calcium Troponin I < 0.012 Triglycerides 90 Cholesterol 140 LDL Cholesterol 71 HDL Cholesterol 46 Heart Disease Risk Ratio 3.0 Urinalys Dipstick Clnc Urine Color Urine Appearance Urine pH Ur Specific [place] POC Urine Protein Conf Urine Ketones Urine Nitrite Urine Bilirubin Urine Urobilinogen Urine Leukocytes Urine WBC (Auto) Urine RBC (Auto) U Epithel Cells (Auto) Urine Bacteria (Auto) Urine RBC Urine Mucus (Auto) Ur Culture Indicated? Urine Glucose 10/04/21 10/04/21 10/04/21 21:28 21:18 20:23 WBC RBC Hgb Hct MCV MCH MCHC RDW Plt Count MPV Gran % Immature Gran % (Auto) Nucleat RBC Rel Count Eos # (Auto) Immature Gran # (Auto) Absolute Lymphs (auto) Absolute Monos (auto) Absolute Nucleated RBC Lymphocytes % Monocytes % Eosinophils % Basophils % Absolute Granulocytes Basophils # Sodium Potassium Chloride Carbon Dioxide Anion Gap BUN Creatinine Estimated GFR Glucose POC Glucometer 117 H Calcium Troponin I < 0.012 Triglycerides Cholesterol LDL Cholesterol HDL Cholesterol Heart Disease Risk Ratio Urinalys Dipstick Clnc MAIN LAB Urine Color YELLOW Urine Appearance CLEAR Urine pH 7.0 Ur Specific [place] 1.025 POC Urine Protein Conf >=300 Urine Ketones NEGATIVE Urine Nitrite NEGATIVE Urine Bilirubin NEGATIVE Urine Urobilinogen 0.2 Urine Leukocytes SMALL Urine WBC (Auto) 51-100 Urine RBC (Auto) 3-5 U Epithel Cells (Auto) NONE Urine Bacteria (Auto) MODERATE Urine RBC SMALL Urine Mucus (Auto) SLIGHT Ur Culture Indicated? YES Urine Glucose NEGATIVE Orders (Last 24 hours) Category Date Time Status Carb Diet 1800 [Consistent Carbohydrate Diet 1800 Diet 10/05/21 Breakfast Completed Calorie] Discharge Routine Discharge 10/05/21 Ordered BMP AM.LAB Lab 10/05/21 04:40 Completed CBC W DIFF AM.LAB Lab 10/05/21 04:40 Completed CULTURE,URINE Stat Lab 10/04/21 21:28 Received LIPID PROFILE AM.LAB Lab 10/05/21 04:40 Completed POCT GLUCOSE Stat Lab 10/04/21 21:18 Completed POCT GLUCOSE Stat Lab 10/05/21 07:34 Completed POCT GLUCOSE Stat Lab 10/05/21 11:50 Completed TROPONIN Q3H Lab 10/04/21 20:23 Completed TROPONIN Q3H Lab 10/04/21 23:51 Completed UA W/RFX CULTURE Stat Lab 10/04/21 21:28 Completed Atenolol 50 mg [Tenormin 50 mg] Med 10/04/21 22:00 Discontinued 50 mg PO HS Benazepril HCl [Lotensin] Med 10/05/21 10:00 Discontinued 40 mg PO DAILY Clopidogrel Bisulfate [PLAVIX Tablet] Med 10/05/21 10:00 Discontinued 75 mg PO DAILY Enoxaparin Sodium [Enoxaparin Sodium] Med 10/04/21 22:00 Discontinued 40 mg SQ Q12HT Levothyroxine Sodium 50 Mcg [Synthroid 50 Mcg] Med 10/05/21 10:00 Discontinued 50 mcg PO DAILY Simvastatin 20Mg [Zocor 20Mg] Med 10/04/21 22:00 Discontinued 40 mg PO HS EKG ROUTINE RT 10/05/21 05:00 Completed EKG ROUTINE RT 10/06/21 05:00 Completed EKG ROUTINE RT 10/07/21 05:00 Completed OT Clarification Order ROUTINE Ther 10/05/21 14:25 Active Patient Care Notes (Last 24 hours) 10/05/21 13:14 Nursing Note by Cl Grant WITH DR DUDLEY MD DISCUSSES WITH PTS SON PTS STATUS, STATES PT CAN GO HOME TODAY AND HE WILL HAVE INCREASING LITTLE STROKES AND SUGGEST FOR HHC OR HOSPICE BUT THINKS HOSPICE WOULD BE BETTER. SON STATED HE NEEDED TO DISCUSS WITH HIS SISTER BEFORE MAKING A DECISION BUT A DECISION WOULD NOT BE DONE TODAY. INFORMATION GIVEN TO SON TO DISCUSS AND NUMBER TO CALL WHEN DECISION IS MADE. Initialized on 10/05/21 13:14 - END OF NOTE Code(s): I63.9 - CEREBRAL INFARCTION, UNSPECIFIED (2) Atrial fibrillation Status: Acute Qualifiers: Atrial fibrillation type: paroxysmal Qualified Code(s): I48.0 - Paroxysmal atrial fibrillation Code(s): I48.91 - UNSPECIFIED ATRIAL FIBRILLATION Hospital Summary - Hospital Course Hospital Course: Last Vital Signs Temp 97.8 F 10/05/21 12:00 Pulse 82 10/05/21 12:00 Resp 20 10/05/21 12:00 BP 94/54 10/05/21 12:00 Pulse Ox 96 10/05/21 12:00 Allergies No Known Drug Allergies Allergy (Verified 10/04/21 16:04) Intake & Output 10/05/21 10/06/21 11:59 11:59 Intake Total 620 480 Output Total 890 Balance -270 480 Weight 59 kg Orders 10/05/21 Discharge Routine 10/05/21 14:25 OT Clarification Order ROUTINE Lab Tests 10/04/21 10/04/21 10/04/21 20:23 21:18 21:28 WBC RBC Hgb Hct MCV MCH MCHC RDW Plt Count MPV Gran % Immature Gran % (Auto) Nucleat RBC Rel Count Eos # (Auto) Immature Gran # (Auto) Absolute Lymphs (auto) Absolute Monos (auto) Absolute Nucleated RBC Lymphocytes % Monocytes % Eosinophils % Basophils % Absolute Granulocytes Basophils # Sodium Potassium Chloride Carbon Dioxide Anion Gap BUN Creatinine Estimated GFR Glucose POC Glucometer 117 H Calcium Troponin I < 0.012 Triglycerides Cholesterol LDL Cholesterol HDL Cholesterol Heart Disease Risk Ratio Urinalys Dipstick Clnc MAIN LAB Urine Color YELLOW Urine Appearance CLEAR Urine pH 7.0 Ur Specific [place] 1.025 POC Urine Protein Conf >=300 Urine Ketones NEGATIVE Urine Nitrite NEGATIVE Urine Bilirubin NEGATIVE Urine Urobilinogen 0.2 Urine Leukocytes SMALL Urine WBC (Auto) 51-100 Urine RBC (Auto) 3-5 U Epithel Cells (Auto) NONE Urine Bacteria (Auto) MODERATE Urine RBC SMALL Urine Mucus (Auto) SLIGHT Ur Culture Indicated? YES Urine Glucose NEGATIVE 10/04/21 10/05/21 10/05/21 23:51 04:40 04:40 WBC 8.4 RBC 3.39 L Hgb 11.4 L Hct 33.1 L MCV 97.6 MCH 33.6 H MCHC 34.4 RDW 12.9 Plt Count 188 MPV 11.1 H Gran % 63.8 Immature Gran % (Auto) 0.4 Nucleat RBC Rel Count 0.0 Eos # (Auto) 0.09 Immature Gran # (Auto) 0.03 Absolute Lymphs (auto) 1.62 Absolute Monos (auto) 1.26 Absolute Nucleated RBC 0.00 Lymphocytes % 19.3 L Monocytes % 15.0 H Eosinophils % 1.1 Basophils % 0.4 Absolute Granulocytes 5.37 Basophils # 0.03 Sodium Potassium Chloride Carbon Dioxide Anion Gap BUN Creatinine Estimated GFR Glucose POC Glucometer Calcium Troponin I < 0.012 Triglycerides 90 Cholesterol 140 LDL Cholesterol 71 HDL Cholesterol 46 Heart Disease Risk Ratio 3.0 Urinalys Dipstick Clnc Urine Color Urine Appearance Urine pH Ur Specific [place] POC Urine Protein Conf Urine Ketones Urine Nitrite Urine Bilirubin Urine Urobilinogen Urine Leukocytes Urine WBC (Auto) Urine RBC (Auto) U Epithel Cells (Auto) Urine Bacteria (Auto) Urine RBC Urine Mucus (Auto) Ur Culture Indicated? Urine Glucose 10/05/21 10/05/21 10/05/21 04:40 07:34 11:50 WBC RBC Hgb Hct MCV MCH MCHC RDW Plt Count MPV Gran % Immature Gran % (Auto) Nucleat RBC Rel Count Eos # (Auto) Immature Gran # (Auto) Absolute Lymphs (auto) Absolute Monos (auto) Absolute Nucleated RBC Lymphocytes % Monocytes % Eosinophils % Basophils % Absolute Granulocytes Basophils # Sodium 134 L Potassium 4.5 Chloride 101 Carbon Dioxide 24 Anion Gap 13.3 BUN 34 H Creatinine 1.14 Estimated GFR > 60.0 Glucose 122 H POC Glucometer 117 H 134 H Calcium 8.8 Troponin I Triglycerides Cholesterol LDL Cholesterol HDL Cholesterol Heart Disease Risk Ratio Urinalys Dipstick Clnc Urine Color Urine Appearance Urine pH Ur Specific [place] POC Urine Protein Conf Urine Ketones Urine Nitrite Urine Bilirubin Urine Urobilinogen Urine Leukocytes Urine WBC (Auto) Urine RBC (Auto) U Epithel Cells (Auto) Urine Bacteria (Auto) Urine RBC Urine Mucus (Auto) Ur Culture Indicated? Urine Glucose - Vitals & Intake/Output Vital Signs: Vital Signs Temperature 97.8 F 10/05/21 12:00 Pulse Rate 82 10/05/21 12:00 Respiratory Rate 20 10/05/21 12:00 Blood Pressure 94/54 10/05/21 12:00 O2 Sat by Pulse Oximetry 96 10/05/21 12:00 Intake & Output: Intake & Output 10/03/21 10/04/21 10/05/2110/06/22 11:59 11:59 11:59 11:59 Intake Total 620 480 Output Total 890 Balance -270 480 Weight 61.9 kg 59 kg - Lab Result Diagrams: 10/05/21 04:40 10/05/21 04:40 Lab Results-Last 24 Hrs: Lab Results-Last 24 Hours 10/04/21 10/04/21 10/04/21 Range/Units 20:23 21:18 21:28 WBC (4.0-10.5) x10^3/uL RBC (4.1-5.6) x10^6/uL Hgb (12.5-18.0) g/dL Hct (42-50) % MCV (78-100) fL MCH (26-32) pg MCHC (32-36) g/dL RDW (11.5-14.0) % Plt Count (150-450) x10^3/uL MPV (7.5-11.0) fL Gran % (36.0-66.0) % Immature Gran % (Auto) (0.00-0.4) % Nucleat RBC Rel Count (0.00-0.1) % Eos # (Auto) (0-0.5) x10^3/uL Immature Gran # (Auto) (0.00-0.03) x10^3u/L Absolute Lymphs (auto) (1.0-4.6) x10^3/uL Absolute Monos (auto) (0.0-1.3) x10^3/uL Absolute Nucleated RBC (0.00-0.01) x10^3u/L Lymphocytes % (24.0-44.0) % Monocytes % (0.0-12.0) % Eosinophils % (0.00-5.0) % Basophils % (0.0-0.4) % Absolute Granulocytes (1.4-6.9) x10^3/uL Basophils # (0-0.4) x10^3/uL Sodium (137-145) mmol/L Potassium (3.5-5.1) mmol/L Chloride (98-107) mmol/L Carbon Dioxide (22-30) mmol/L Anion Gap (5-15) MEQ/L BUN (9-20) mg/dL Creatinine (0.66-1.25) mg/dL Estimated GFR ML/MIN Glucose (74-106) mg/dL POC Glucometer 117 H (74 to 106) mg/dL Calcium (8.4-10.2) mg/dL Troponin I < 0.012 (0.000-0.034) ng/mL Triglycerides (30-150) mg/dL Cholesterol (50-200) mg/dL LDL Cholesterol (30-100) mg/dL HDL Cholesterol (40-60) mg/dL Heart Disease Risk Ratio Urinalys Dipstick Clnc MAIN LAB Urine Color YELLOW (YELLOW) Urine Appearance CLEAR (CLEAR) Urine pH 7.0 (5-6) Ur Specific [place] 1.025 (1.005-1.025) POC Urine Protein Conf >=300 (Negative) Urine Ketones NEGATIVE (NEGATIVE) Urine Nitrite NEGATIVE (NEGATIVE) Urine Bilirubin NEGATIVE (NEGATIVE) Urine Urobilinogen 0.2 (0-1) mg/dL Urine Leukocytes SMALL (NEGATIVE) Urine WBC (Auto) 51-100 (0-5) /HPF Urine RBC (Auto) 3-5 (0-2) /HPF U Epithel Cells (Auto) NONE (FEW) /HPF Urine Bacteria (Auto) MODERATE (NEGATIVE) /HPF Urine RBC SMALL (0-5) Anibal/ul Urine Mucus (Auto) SLIGHT (NEGATIVE) /HPF Ur Culture Indicated? YES Urine Glucose NEGATIVE (NEGATIVE) mg/dL 10/04/21 10/05/21 10/05/21 Range/Units 23:51 04:40 04:40 WBC 8.4 (4.0-10.5) x10^3/uL RBC 3.39 L (4.1-5.6) x10^6/uL Hgb 11.4 L (12.5-18.0) g/dL Hct 33.1 L (42-50) % MCV 97.6 (78-100) fL MCH 33.6 H (26-32) pg MCHC 34.4 (32-36) g/dL RDW 12.9 (11.5-14.0) % Plt Count 188 (150-450) x10^3/uL MPV 11.1 H (7.5-11.0) fL Gran % 63.8 (36.0-66.0) % Immature Gran % (Auto) 0.4 (0.00-0.4) % Nucleat RBC Rel Count 0.0 (0.00-0.1) % Eos # (Auto) 0.09 (0-0.5) x10^3/uL Immature Gran # (Auto) 0.03 (0.00-0.03) x10^3u/L Absolute Lymphs (auto) 1.62 (1.0-4.6) x10^3/uL Absolute Monos (auto) 1.26 (0.0-1.3) x10^3/uL Absolute Nucleated RBC 0.00 (0.00-0.01) x10^3u/L Lymphocytes % 19.3 L (24.0-44.0) % Monocytes % 15.0 H (0.0-12.0) % Eosinophils % 1.1 (0.00-5.0) % Basophils % 0.4 (0.0-0.4) % Absolute Granulocytes 5.37 (1.4-6.9) x10^3/uL Basophils # 0.03 (0-0.4) x10^3/uL Sodium (137-145) mmol/L Potassium (3.5-5.1) mmol/L Chloride (98-107) mmol/L Carbon Dioxide (22-30) mmol/L Anion Gap (5-15) MEQ/L BUN (9-20) mg/dL Creatinine (0.66-1.25) mg/dL Estimated GFR ML/MIN Glucose (74-106) mg/dL POC Glucometer (74 to 106) mg/dL Calcium (8.4-10.2) mg/dL Troponin I < 0.012 (0.000-0.034) ng/mL Triglycerides 90 (30-150) mg/dL Cholesterol 140 (50-200) mg/dL LDL Cholesterol 71 (30-100) mg/dL HDL Cholesterol 46 (40-60) mg/dL Heart Disease Risk Ratio 3.0 Urinalys Dipstick Clnc Urine Color (YELLOW) Urine Appearance (CLEAR) Urine pH (5-6) Ur Specific [place] (1.005-1.025) POC Urine Protein Conf (Negative) Urine Ketones (NEGATIVE) Urine Nitrite (NEGATIVE) Urine Bilirubin (NEGATIVE) Urine Urobilinogen (0-1) mg/dL Urine Leukocytes (NEGATIVE) Urine WBC (Auto) (0-5) /HPF Urine RBC (Auto) (0-2) /HPF U Epithel Cells (Auto) (FEW) /HPF Urine Bacteria (Auto) (NEGATIVE) /HPF Urine RBC (0-5) Anibal/ul Urine Mucus (Auto) (NEGATIVE) /HPF Ur Culture Indicated? Urine Glucose (NEGATIVE) mg/dL 10/05/21 10/05/21 10/05/21 Range/Units 04:40 07:34 11:50 WBC (4.0-10.5) x10^3/uL RBC (4.1-5.6) x10^6/uL Hgb (12.5-18.0) g/dL Hct (42-50) % MCV (78-100) fL MCH (26-32) pg MCHC (32-36) g/dL RDW (11.5-14.0) % Plt Count (150-450) x10^3/uL MPV (7.5-11.0) fL Gran % (36.0-66.0) % Immature Gran % (Auto) (0.00-0.4) % Nucleat RBC Rel Count (0.00-0.1) % Eos # (Auto) (0-0.5) x10^3/uL Immature Gran # (Auto) (0.00-0.03) x10^3u/L Absolute Lymphs (auto) (1.0-4.6) x10^3/uL Absolute Monos (auto) (0.0-1.3) x10^3/uL Absolute Nucleated RBC (0.00-0.01) x10^3u/L Lymphocytes % (24.0-44.0) % Monocytes % (0.0-12.0) % Eosinophils % (0.00-5.0) % Basophils % (0.0-0.4) % Absolute Granulocytes (1.4-6.9) x10^3/uL Basophils # (0-0.4) x10^3/uL Sodium 134 L (137-145) mmol/L Potassium 4.5 (3.5-5.1) mmol/L Chloride 101 (98-107) mmol/L Carbon Dioxide 24 (22-30) mmol/L Anion Gap 13.3 (5-15) MEQ/L BUN 34 H (9-20) mg/dL Creatinine 1.14 (0.66-1.25) mg/dL Estimated GFR > 60.0 ML/MIN Glucose 122 H (74-106) mg/dL POC Glucometer 117 H 134 H (74 to 106) mg/dL Calcium 8.8 (8.4-10.2) mg/dL Troponin I (0.000-0.034) ng/mL Triglycerides (30-150) mg/dL Cholesterol (50-200) mg/dL LDL Cholesterol (30-100) mg/dL HDL Cholesterol (40-60) mg/dL Heart Disease Risk Ratio Urinalys Dipstick Clnc Urine Color (YELLOW) Urine Appearance (CLEAR) Urine pH (5-6) Ur Specific [place] (1.005-1.025) POC Urine Protein Conf (Negative) Urine Ketones (NEGATIVE) Urine Nitrite (NEGATIVE) Urine Bilirubin (NEGATIVE) Urine Urobilinogen (0-1) mg/dL Urine Leukocytes (NEGATIVE) Urine WBC (Auto) (0-5) /HPF Urine RBC (Auto) (0-2) /HPF U Epithel Cells (Auto) (FEW) /HPF Urine Bacteria (Auto) (NEGATIVE) /HPF Urine RBC (0-5) Anibal/ul Urine Mucus (Auto) (NEGATIVE) /HPF Ur Culture Indicated? Urine Glucose (NEGATIVE) mg/dL - Radiology Exams Ordered Rad Exams-Entire Visit: Radiology Procedures Category Date Time Status CAROTID BILATERAL [US] Stat Exams 10/04/21 16:23 Completed CHEST 1 VIEW (PORTABLE) Stat Exams 10/04/21 10:36 Completed ECHO W/2D AND DOPPLER [US] Stat Exams 10/04/21 16:23 Taken HEAD WITHOUT CONTRAST [CT] Stat Exams 10/04/21 10:38 Completed MRA BRAIN WITHOUT CONTRAST [MRI] Routine Exams 10/04/21 14:44 Completed MRI BRAIN W/O CONTRAST [MRI] Routine Exams 10/04/21 14:34 Taken - Procedures and Test Procedures and Tests throughout Hospitalization: Therapy Orders & Screens 10/04/21 13:45 EKG Q8HX2,QAMX3,PRN Comment: EKG Q8HX2,QAMX3,PRN Comment: 10/04/21 14:46 OT Eval and Treat (MD Order) ROUTINE Comment: Consulting Provider: Physician Instructions: Reason For Exam: Diagnosis: Atrial fibrillation, Stroke PT Eval & Treat (MD Order) ONCE Reason for Eval:: cv stroke Diagnosis: Atrial fibrillation, Stroke 10/04/21 14:47 ST Eval & Treat (MD Order) ROUTINE Comment: Physician Instructions: Reason For Exam: Evaluate: Yes Treat: Yes Reason for Eval: cv stroke Diagnosis: Atrial fibrillation, Stroke 10/04/21 17:26 OT Screen per Nursing Assess ONCE Comment: Protocol Order Physician Instructions: Greater than 3 points order OT Admission Screening Reason For Exam: Triggered on Admission Diagnosis: Atrial fibrillation, Stroke Open Wound/Cellutlitis/Pressure Ulcers: No Acute Fx/ORIF/Change in wt bearing status: No Severe MUSCULOSKELETAL pain: No ADL Dysfunction: Yes Acute CVA w/Hemiparesis/Hemiplegia: Yes Decreased Functional Mobility/Strength: Yes Sprain/Strain: No Acute Post-op Mobility Dysfunction: No Total Points: 9 PT Screen per Nursing Assess ONCE Comment: Protocol Order Physician Instructions: Greater than 3 points order PT Admission Screenin Reason For Exam: Triggered on Admission Diagnosis: Atrial fibrillation, Stroke Open Wound/Cellutlitis/Pressure Ulcers: No Acute Fx/ORIF/Change in wt bearing status: No Severe MUSCULOSKELETAL pain: No ADL Dysfunction: Yes Acute CVA w/Hemiparesis/Hemiplegia: Yes Decreased Functional Mobility/Strength: Yes Sprain/Strain: No Acute Post-op Mobility Dysfunction: No Total Points: 9 ST Screen per Nursing Assess ONCE Comment: Protocol Order Physician Instructions: Greater than [address] Admission Screening Reason For Exam: Triggered on Admission Diagnosis: Atrial fibrillation, Stroke CVA/Dyshpagia/Aphasia: Yes Cognitive Deficits: Yes Dehydration/Nutrition Deficit: No Reflux: No Oral-Motor Difficulties: Yes Pneumonia: No Prison Resident: No Total Points: 11 10/04/21 18:59 EKG ROUTINE Comment: Diagnosis: Atrial fibrillation, Stroke 10/05/21 05:00 EKG ROUTINE Comment: Diagnosis: Atrial fibrillation, Stroke 10/05/21 14:25 OT Clarification Order ROUTINE Comment: Physician Instructions: Reason For Exam: OT Clarification: OT to see patient 5 days/week excluding weekends to address functional strength, safety awareness, AE/AD training, and I/ADL independence and safety in order to improve functional performance and promote safe return to home environment with family. 10/06/21 05:00 EKG ROUTINE Comment: Diagnosis: Atrial fibrillation, Stroke 10/07/21 05:00 EKG ROUTINE Comment: Diagnosis: Atrial fibrillation, Stroke - Discharge Discharge Date: 10/05/21 Disposition: Home, Self-Care Condition: Stable Prescriptions: Continue Pravastatin Sodium 40 mg PO HS Metformin HCl 500 mg [Glucophage 500 MG] 250 mg PO BID Levothyroxine Sodium 50 Mcg [Synthroid 50 Mcg] 50 mcg PO DAILY Benazepril HCl 40 mg PO DAILY Atenolol 50 mg [Tenormin 50 mg] 50 mg PO HS Instructions: Stroke (DC) Additional Instructions: DR. BUCKNER WOULD LIKE YOU TO CONSIDER HHC OR HOSPICE. PLEASE DISCUSS THIS WITH YOUR FAMILY AND LET DR. ROACH OFFICE KNOW IF YOU DECIDE TO ADD ONE OF THOSE SERVICES AND THEY CAN SET THAT UP. IF YOU HAVE ANY QUESTIONS, YOU CAN CONTACT [facility] AT [phone] ext [phone] Follow up with: SAMUEL BUCKNER MD [Primary Care Provider] - 7 Days
--- NOTE | 2021-10-10 08:07 | ECHO ---
Transthoracic echocardiographic examination and color Doppler was done on 10/04/2021. INDICATION: Stroke. IMPRESSION: 1) NO REGIONAL WALL MOTION ABNORMALITY. ESTIMATED GLOBAL LEFT VENTRICULAR EJECTION FRACTION OF AROUND 60 TO 65%. 2) SEVERE AORTIC STENOSIS WITH A PEAK TRANSAORTIC GRADIENT OF 61 MM OF MERCURY AND MEAN GRADIENT OF 35 MM OF MERCURY. CALCULATED AORTIC VALVE AREA OF 0.67 SQ. 3) MILD AORTIC REGURGITATION. 4) MILD MITRAL REGURGITATION. 5) MILD TO MODERATE TRICUSPID REGURGITATION. RIGHT VENTRICULAR SYSTOLIC PRESSURE OF 45 MM OF MERCURY. 6) LEFT VENTRICULAR HYPERTROPHY. The left ventricle is visualized and demonstrated adequate motion of all the segments. Estimated global left ventricular ejection fraction of about 60 to 65%. There is concentric left ventricular hypertrophy. The mitral valve is thickened but opens adequately. There is mild mitral regurgitation. Left atrium is upper limits of normal. The aortic valve is heavily calcified. The peak gradient across the aortic valve is 61 mm of Mercury with a mean gradient of 35 mm of Mercury with a calculated aortic valve area of 0.6 cm/sq. The VR is 0.14 this is suggestive of severe aortic stenosis. There is associated mild aortic regurgitation. The right side chambers are mildly dilated. There is mild to moderate tricuspid regurgitation with a right ventricular systolic pressure of 45 mm of Mercury suggestive of mild pulmonary hypertension. The tissue Doppler study of the lateral mitral annulus is suggestive of left ventricle diastolic dysfunction.
--- NOTE | 2021-10-11 16:19 | XRAY ---
Indication: Acute mental status change. Sagittal and axial MRI brain performed without contrast using T1, T2, diffusion, and ADC sequences. Comparison: None Examination terminated early due to patient unable to finish exam. Several images slightly degraded by motion artifact. There is age-appropriate global atrophy and mild periventricular degenerative micro-ischemia bilaterally. 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 Subcentimeter old infarct left basal ganglia. Left temporoparietal lobe demonstrates large focus of restricted signal favoring acute ischemia. No mass effect/midline shift again. Fourth ventricle is midline without hydrocephalus. 7/8 cranial nerve complex bilaterally symmetric. Normal flow void signal within the major intracerebral circulation. Normal appearing craniocervical junction and sella turcica. Visualized paranasal sinuses are clear. Impression: 1. Limited incomplete MRI exam with motion artifact. 2. Large focus acute ischemia left temporoparietal lobe without mass effect/midline shift. 3. Atrophy, degenerative micro-ischemia, and multifocal old infarcts as detailed.
== END 2021-10-05 12:54 | disposition home or self-care (01) ==
LOC: ED 10:07 → MED SURG 13:39
PROVIDERS: ADMIT General Practice; ATTEND General Practice
DX: I63.9 Cerebral infarction, unspecified (principal); I48.91 Unspecified atrial fibrillation; I10 Essential (primary) hypertension; E11.9 Type 2 diabetes mellitus without complications; E03.9 Hypothyroidism, unspecified; R26.81 Unsteadiness on feet; Z79.899 Other long term (current) drug therapy; Z20.828 Contact with and (suspected) exposure to other viral communicable diseases
CPT/HCPCS: 0241U; 36000; 36415; 70450; 70544; 70551; 71045; 80048; 80053; 80061; 81015; 82140; 82947; 83036; 83605; 83721; 83735; 84443; 84484; 85025; 85610; 87077; 87086; 87186; 92610; 93005; 93041; 93268; 93306; 93880; 94760; 96372; 97161; 97165; 99285; G0378; Q3014; J1650; A9270-GY